=== PATIENT | female | born 1995 | race African-American/Black ===

== ENCOUNTER 2016-11-24 14:16 | Emergency (ER) | payer MEDICAID ==
[~2016-11-24] VITALS: Ht 167.6 cm; Wt 81.6 kg
[2016-11-24] MEDS ORDERED: ACETAMINOPHEN 325 MG TABLET. PO ONE (15:30)
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
[2016-11-24 16:17] VITALS: BP 110/61
[2016-11-24 16:25] LABS: BACTERIA,URINE 0 /HPF (0-FEW); BILIRUBIN,URINE NEGATIVE (NEG); GLUCOSE,URINE NEGATIVE (NEG); NITRITE,URINE NEGATIVE (NEG); PH,URINE 7.5; PROTEIN,URINE NEGATIVE (NEG-TRACE); SQUAMOUS EPITHELIAL CELL,UR FEW /LPF; UROBILINOGEN,URINE 0.2 mg/dL (0.2 mg/dL); WBC,URINE 20-40 /HPF (0-4)
[2016-11-24] MEDS ORDERED: NITR100C62 PO (16:59)
== END 2016-11-24 17:44 | disposition home or self-care (01) ==
LOC: ER 14:16 → EEVIPCON 14:16 → ER 17:44
DX: O26.892 Other specified pregnancy related conditions, second trimester (principal); R10.30 Lower abdominal pain, unspecified; O23.42 Unspecified infection of urinary tract in pregnancy, second trimester; Z3A.16 16 weeks gestation of pregnancy; Y08.89XA Assault by other specified means, initial encounter; Y93.89 Activity, other specified; Y92.89 Other specified places as the place of occurrence of the external cause; Y99.8 Other external cause status
CPT/HCPCS: 76815; 81001; 87086; 99285-25